=== PATIENT | male | born 1955 ===

== ENCOUNTER 2016-09-27 08:37 | Emergency (ER) | payer OTHER ==
[2016-09-27] MEDS ORDERED: ZYRTEC10 M7 PO (08:49)
[2016-09-27] MEDS ORDERED: KEFLEX500 M4 PO (10:43)
[2016-09-27] MEDS ORDERED: XEROFORM PETRO1 EAC1 TP (10:45)
== END 2016-09-27 11:17 ==
LOC: EDMED 08:37
PROC: 0HQFXZZ Repair Right Hand Skin, External Approach (ICD-10-PCS; principal; 2016-09-27)
DX: S67.194A Crushing injury of right ring finger, initial encounter (principal); S62.602A Fracture of unspecified phalanx of right middle finger, initial encounter for closed fracture; X58.XXXA Exposure to other specified factors, initial encounter; Y92.69 Other specified industrial and construction area as the place of occurrence of the external cause; Y99.0 Civilian activity done for income or pay